=== PATIENT | female | born 1950 | race Two or more races ===

== ENCOUNTER 2021-01-20 08:30 | Inpatient (IN) | payer OTHER ==
[~2021-01-20] VITALS: Ht 154.9 cm; Wt 81.2 kg
[~2021-01-20 08:30] MED LIST: HAYZAAR; NABUMETONE500 MG PO; PERCOCET 5/3251 TAB PO; PREDISONE; PROVENTIL0.5 ML/2.5 IH; PULMOCARE PO; RELAFEN PO; SINGULAIR10 MG PO; SYMBICORT 16010.2 GM IH; THEOPHYLLI IV; THEOPHYLLINE400 MG PO; ZETIA10 MG PO
[2021-01-20] MEDS ORDERED: PEPCID AC20 MG PO (10:58)
[2021-01-20] MEDS ORDERED: DULOXETINE HCL40 MG PO (10:58)
[2021-01-20] MEDS ORDERED: VITAMIN PO (10:59)
[2021-01-20] MEDS ORDERED: SYMBIC IN (10:59)
[2021-01-20] MEDS ORDERED: COZAAR100 MG PO (11:00)
[2021-01-20] MEDS ORDERED: NORVASC5 MG PO (11:00)
[2021-01-20] MEDS ORDERED: ALLERGY RELIE15.8 ML (11:01)
[2021-01-20] MEDS ORDERED: GABAPENT PO (11:01)
[2021-01-20] MEDS ORDERED: CELEBREX200MG PO (11:02)
[2021-01-20] MEDS ORDERED: ZETIA10 MG PO (11:02)
[2021-01-27] MEDS ORDERED: VITAMIN D350 MCG (09:49)
[2021-01-27] MEDS ORDERED: GABAPENTIN800 M1 (09:49)
[2021-01-27] MEDS ORDERED: AZITHROMYCIN500 MG (09:49)
[2021-01-27] MEDS ORDERED: SYMBICORT 16010.2 GM (09:50)
[2021-01-27] MEDS ORDERED: CETIRIZINE HCL10 MG (09:50)
[2021-01-29] MEDS ORDERED: PERCOCET 5-3251 EACH PO (17:44)
[2021-01-29] MEDS ORDERED: ELIQUIS2.5 MG PO (17:44)
[2021-01-29] MEDS ORDERED: CIPRO500 MG PO (17:44)
== END 2021-01-29 19:32 | DRG 470 ==
LOC: O/R 01-27 06:00 → SURH 01-27 06:00
PROVIDERS: ADMIT Orthopaedic Surgery; ATTEND Orthopaedic Surgery
PROC: 0SRC0J9 Replacement of Right Knee Joint with Synthetic Substitute, Cemented, Open Approach (ICD-10-PCS; principal; 2021-01-27 09:15)
DX: M17.11 Unilateral primary osteoarthritis, right knee (principal); M22.11 Recurrent subluxation of patella, right knee; I10 Essential (primary) hypertension

== ENCOUNTER → 2025-05-09 | Outpatient (CLI) | payer OTHER ==
[~2025-05-09] MED LIST changes: +ALLERGY RELIE15.8 ML; +AZITHROMYCIN500 MG; +CELEBREX200MG PO; +CETIRIZINE HCL10 MG; +CIPRO500 MG PO; +COZAAR100 MG PO; +DULOXETINE HCL40 MG PO; +ELIQUIS2.5 MG PO; +GABAPENT PO; +GABAPENTIN800 M1; +NORVASC5 MG PO; +PEPCID AC20 MG PO; +PERCOCET 5-3251 EACH PO; +SYMBIC IN; +SYMBICORT 16010.2 GM; +VITAMIN D350 MCG; +VITAMIN PO
== END | disposition home or self-care (01) ==
LOC: SONOGRAMA 14:07
PROVIDERS: ATTEND Pathology Anatomic Pathology
DX: D34 Benign neoplasm of thyroid gland (principal); E07.89 Other specified disorders of thyroid; E04.1 Nontoxic single thyroid nodule